=== PATIENT | male | born 1980 | race Caucasian/White ===

== ENCOUNTER 2017-08-23 20:13 | Emergency (ER) | payer OTHER ==
[~2017-08-23] VITALS: Ht 193 cm; Wt 104.3 kg
[~2017-08-23 20:13] MED LIST: CLEOCIN HCL150 MG PO; CLEOCIN HCL300 MG PO; NOHOMEMEDICATIONS; PRINIVIL10 MG PO; TRIAMCINOLONE A80 G2 TOP; ZOLOFT PO; ZYVOX600 MG PO; [UNRECOGNIZED DRUG - REMARK]
[2017-08-23] MEDS ORDERED: NAPROSYN500 MG PO (21:41)
[2017-08-23] MEDS ORDERED: ROBAXIN500 MG PO (21:41)
[2017-08-23 21:57] VITALS: BP 132/89
== END 2017-08-23 21:58 | disposition home or self-care (01) ==
LOC: M.ERS 20:13
DX: S16.1XXA Strain of muscle, fascia and tendon at neck level, initial encounter (principal); S39.012A Strain of muscle, fascia and tendon of lower back, initial encounter; F32.9 Major depressive disorder, single episode, unspecified; Z86.19 Personal history of other infectious and parasitic diseases; V49.69XA Unspecified car occupant injured in collision with other motor vehicles in traffic accident, initial encounter; Y93.89 Activity, other specified; Y92.89 Other specified places as the place of occurrence of the external cause; Y99.8 Other external cause status

== ENCOUNTER 2019-07-21 22:25 | Emergency (ER) | payer OTHER ==
[~2019-07-21] VITALS: Ht 190.5 cm; Wt 97.5 kg
[~2019-07-21 22:25] MED LIST changes: +NAPROSYN500 MG PO; +ROBAXIN500 MG PO
[2019-07-21] MEDS ORDERED: SUBOXONE 8 MG-1 EAC3 SUBLING (22:33)
[2019-07-21] MEDS ORDERED: SERTRALINE HCL50 MG PO (22:34)
[2019-07-22 01:02] LABS: HEMOGLOBIN 13.5 gm/dL (14.0-18.0); MCH 30.4 pg (26.0-34.0); MCHC 34.5 g/dL (28.0-37.0); MCV 88.2 fL (80.0-100.0); MPV 7.9 fl. (7.2-11.1); NUCLEATED RBCS 0 /100WBC; PLATELET COUNT* 326 thou/uL (150-400); RBC 4.42 mil/uL (4.50-6.00); RDW-CV 13.1 % (10.5-14.5); WBC 20.7 thou/uL (4.0-11.0)
[2019-07-22 01:08] LABS: CALCIUM 8.2 mg/dL (8.5-10.1); CREATININE 0.7 mg/dL (0.6-1.3); POTASSIUM 3.2 mmol/L (3.5-5.1)
[2019-07-22 01:12] LABS: ALBUMIN 3.3 g/dL (3.4-5.0); MAGNESIUM 2.3 mg/dL (1.8-2.4); TOTAL BILIRUBIN 0.3 mg/dL (<0.1-1.0); TOTAL PROTEIN 7.3 g/dL (6.4-8.2)
[2019-07-22 01:45] LABS: ABSOLUTE LYMPHOCYTES 1.4 thou/uL (0.8-5.3); ABSOLUTE MONOCYTES 0.8 thou/uL (0.0-1.2); ABSOLUTE NEUTROPHILS 18.4 thou/uL (1.6-8.1); ANISOCYTOSIS Occasional; PLATELET ESTIMATE ADEQUATE; TOXIC GRANULATION 2+
[2019-07-22 02:07] VITALS: BP 128/97
--- NOTE | 2019-07-22 10:14 | EKG ---
[place] [address] ELECTROCARDIOGRAM REPORT Name: ELIZABETH MORSE Room: [facility]#: [id number] Admission: 07/21/19 Attend Phys: Discharge: 07/22/19 Date of : 76 Date of Service: 07/21/198 Report #: [id number] THIS REPORT FOR: //name// [facility] ED Test Date: 2019-07-21 Test Time: 22:48:24 Pat Name: ELIZABETH MORSE Department: Room: Gender: Reverse Unit Operator: [place] : 1980 Requested By: Adalberto Wade Order Number: [id number] MD: Mandeep Smith Measurements Intervals [place] Rate: 97 P: 72 SD: 174 QRS: 74 QRSD: 106 T: 60 QT: 357 QTc: 454 Interpretive Statements Sinus rhythm Artifact in lead(s) V1,V2 No previous ECG available for comparison Electronically Signed On 07-22-2019 10:13:50 CUST[employer]ER MANAGEMENT SPECIALIST by Mandeep Smith [email or web address] <ELECTRONICALLY SIGNED> By: Mandeep Smith MD, [facility] 07/22/19 [id number] Mandeep Smith MD, FACC /EPI
== END 2019-07-22 02:07 | disposition home or self-care (01) ==
LOC: M.ERS 22:25
PROVIDERS: Emergency Medicine Emergency Medical Services
DX: M25.512 Pain in left shoulder (principal); R07.89 Other chest pain; F32.9 Major depressive disorder, single episode, unspecified; Z98.52 Vasectomy status

== ENCOUNTER 2019-10-01 05:41 | Emergency (ER) | payer OTHER ==
[~2019-10-01] VITALS: Ht 190.5 cm; Wt 99.8 kg
[~2019-10-01 05:41] MED LIST changes: +SERTRALINE HCL50 MG PO; +SUBOXONE 8 MG-1 EAC3 SUBLING
[2019-10-01 06:13] LABS: ABSOLUTE BASOPHILS 0.1 thou/uL (0.0-0.2); ABSOLUTE EOSINOPHILS 0.2 thou/uL (0.0-0.7); ABSOLUTE LYMPHOCYTES 1.9 thou/uL (0.8-5.3); ABSOLUTE MONOCYTES 0.6 thou/uL (0.0-1.2); ABSOLUTE NEUTROPHILS 5.7 thou/uL (1.6-8.1); BASOPHILS 1.2 %; HEMATOCRIT 39.8 % (42.0-52.0); HEMOGLOBIN 13.9 gm/dL (14.0-18.0); LYMPHOCYTES 21.9 %; MCH 31.8 pg (26.0-34.0); MCHC 34.9 g/dL (28.0-37.0); MCV 91.4 fL (80.0-100.0); MONOCYTES 7.6 %; MPV 7.7 fl. (7.2-11.1); NUCLEATED RBCS 0 /100WBC; PLATELET COUNT* 326 thou/uL (150-400); POLYS 67.3 %; RBC 4.36 mil/uL (4.50-6.00); RDW-CV 12.9 % (10.5-14.5); WBC 8.5 thou/uL (4.0-11.0)
[2019-10-01 06:24] LABS: CALCIUM 8.1 mg/dL (8.5-10.1); CREATININE 0.9 mg/dL (0.6-1.3); POTASSIUM 3.8 mmol/L (3.5-5.1)
[2019-10-01 06:25] LABS: ALCOHOL < 10 mg/dL (<10); SALICYLATE < 2.8 mg/dL (2.8-20.0)
[2019-10-01 06:30] LABS: ACETAMINOPHEN < 2 ug/mL (10-30)
[2019-10-01 06:34] LABS: ALBUMIN 3.7 g/dL (3.4-5.0); TOTAL BILIRUBIN 0.3 mg/dL (<0.1-1.0); TOTAL PROTEIN 7.8 g/dL (6.4-8.2)
[2019-10-01 09:05] VITALS: BP 145/93
== END 2019-10-01 09:06 | disposition home or self-care (01) ==
LOC: M.ERS 05:41
PROVIDERS: Emergency Medicine
DX: T40.2X1A Poisoning by other opioids, accidental (unintentional), initial encounter (principal); F32.9 Major depressive disorder, single episode, unspecified; Z86.19 Personal history of other infectious and parasitic diseases; Y92.89 Other specified places as the place of occurrence of the external cause